=== PATIENT | male | born 1950 | race American Indian/Alaskan Native ===

== ENCOUNTER 2017-07-20 18:01 | Emergency (ER) | payer OTHER ==
--- NOTE | 2017-07-20 23:29 | Emergency Department Report ---
- General Chief Complaint: Upper Respiratory Infection Stated Complaint: SORE THROAT /COUGH Time Seen by Provider: 07/20/17 22:40 Source: patient Mode of arrival: Ambulatory Limitations: No Limitations - History of Present Illness Initial Comments: 67-year-old male past medical history smoker presents with complaint of 3 days of cough with sore throat. Patient is awake alert and oriented 3 no audible wheezing or stridor no trismus or drooling noted. Speaking in full sentences. States he has had slightly productive cough for 3 days. States he has had some sick contacts at home. Denies nausea or vomiting denies chest pain palpitations significant shortness of breath at rest or with exertion. Denies any fevers or chills. States he smokes 2-3 packs a day. Has not taken any over -the-counter medicines for his symptoms. MD Complaint: cough Onset/Timin -: days(s) Severity: moderate Consistency: constant Worsens With: nothing Context: sick contacts Associated Symptoms: cough Treatments Prior to Arrival: none - Related Data Previous Rx's Medication Instructions Recorded Last Taken Type ALBUTEROL Inhaler [ProAir HFA 2 puff IH QID PRN #1 inhalation 07/20/17 Unknown Rx Inhaler] Azithromycin [Zithromax Z-ALEX] 250 mg PO QDAY #1 pack 07/20/17 Unknown Rx Naproxen 500 mg PO BID PRN #30 tablet 07/20/17 Unknown Rx Phenylephrine/Dm/Acetaminop/GG 10 ml PO Q4H PRN #1 liquid 07/20/17 Unknown Rx [Mucinex Agmc-Zlu-Ndohycxjhr Lq] Allergies Allergy/AdvReac Type Severity Reaction Status Date / Time No Known Allergies Allergy Unverified 07/20/17 18:31 ED Review of Systems ROS: Stated complaint: SORE THROAT /COUGH Other details as noted in HPI Constitutional: malaise. denies: chills, fever Eyes: denies: eye pain, eye discharge, vision change ENT: denies: ear pain, throat pain Respiratory: cough. denies: shortness of breath, wheezing Cardiovascular: denies: chest pain, palpitations Endocrine: no symptoms reported Gastrointestinal: denies: abdominal pain, nausea, diarrhea Genitourinary: denies: urgency, dysuria Musculoskeletal: denies: back pain, joint swelling, arthralgia Skin: denies: rash, lesions Neurological: denies: headache, weakness, paresthesias Psychiatric: denies: anxiety, depression Hematological/Lymphatic: denies: easy bleeding, easy bruising ED Past Medical Hx - Past Medical History Previous Medical History?: No - Surgical History Past Surgical History?: No - Social History Smoking Status: Current Every Day Smoker Substance Use Type: None - Medications Home Medications: Home Medications Medication Instructions Recorded Confirmed Last Taken Type ALBUTEROL Inhaler [ProAir HFA 2 puff IH QID PRN #1 inhalation 07/20/17 Unknown Rx Inhaler] Azithromycin [Zithromax Z-ALEX] 250 mg PO QDAY #1 pack 07/20/17 Unknown Rx Naproxen 500 mg PO BID PRN #30 tablet 07/20/17 Unknown Rx Phenylephrine/Dm/Acetaminop/GG 10 ml PO Q4H PRN #1 liquid 07/20/17 Unknown Rx [Mucinex Mktq-Smg-Vinywbbylt Lq] ED Physical Exam - General Limitations: No Limitations General appearance: alert, in no apparent distress - Head Head exam: Present: atraumatic, normocephalic - Eye Eye exam: Present: normal appearance, PERRL, EOMI - ENT ENT exam: Present: mucous membranes moist - Expanded ENT Exam Expanded Throat exam: Positive: tonsillar erythema (slight erythema but no PTCA uvula is midline no significant exudates) - Neck Neck exam: Present: normal inspection - Respiratory Respiratory exam: Present: normal lung sounds bilaterally (no wheezing on auscultation on exam bilaterally). Absent: respiratory distress - Cardiovascular Cardiovascular Exam: Present: regular rate, normal rhythm. Absent: systolic murmur, diastolic murmur, rubs, gallop - GI/Abdominal GI/Abdominal exam: Present: soft, normal bowel sounds - Rectal Rectal exam: Present: deferred - Extremities Exam Extremities exam: Present: normal inspection - Back Exam Back exam: Present: normal inspection - Neurological Exam Neurological exam: Present: alert, oriented X3 - Psychiatric Psychiatric exam: Present: normal affect, normal mood - Skin Skin exam: Present: warm, dry, intact, normal color. Absent: rash ED Course Vital Signs 07/20/17 18:29 Temperature 98.5 F Pulse Rate 75 Respiratory 18 Rate Blood Pressure 127/71 O2 Sat by Pulse 99 Oximetry ED Medical Decision Making - Medical Decision Making A/P: Upper respiratory infection, reactive airway disease 1-Mucinex, naproxen, albuterol inhaler 2-I offered patient testing for flu patient states he is not interested in doing so at this time. States that he had vaccination for the flu this season. As patient is a heavy smoker and does complain of productive cough treat empirically with azithromycin 3-patient states he has follow-up with his primary care doctor at the end of the week 4-vital signs stable before discharge Critical care attestation.: If time is entered above; I have spent that time in minutes in the direct care of this critically ill patient, excluding procedure time. ED Disposition Clinical Impression: Upper respiratory infection Qualifiers: URI type: unspecified URI Qualified Code(s): J06.9 - Acute upper respiratory infection, unspecified Reactive airway disease Qualifiers: Asthma severity: mild Asthma persistence: intermittent Asthma complication type : with acute exacerbation Qualified Code(s): J45.21 - Mild intermittent asthma with (acute) exacerbation Disposition: TO HOME OR SELFCARE Is pt being admited?: No Does the pt Need Aspirin: No Condition: Stable Instructions: Upper Respiratory Infection (ED), Viral Syndrome (ED), Cold Symptoms (ED) Prescriptions: ALBUTEROL Inhaler [ProAir HFA Inhaler] 2 puff IH QID PRN #1 inhalation PRN Reason: Shortness Of Breath Azithromycin [Zithromax Z-ALEX] 250 mg PO QDAY #1 pack Naproxen 500 mg PO BID PRN #30 tablet PRN Reason: Cough Phenylephrine/Dm/Acetaminop/GG [Mucinex Uptc-Dpo-Cgqdetqnrg Lq] 10 ml PO Q4H PRN #1 liquid PRN Reason: Cough Referrals: [facility] [Provider Group] - 3-5 Days [facility] [Outside] - 3-5 Days Forms: Work/School Release Form(ED) Time of Disposition: 23:30
[2017-07-21 00:32] VITALS: BP 153/90
== END 2017-07-20 23:45 | disposition home or self-care (01) ==
LOC: ED 18:01
DX: J06.9 Acute upper respiratory infection, unspecified (principal); J45.909 Unspecified asthma, uncomplicated; F17.200 Nicotine dependence, unspecified, uncomplicated
CPT/HCPCS: 87116; 87430; 99282